=== PATIENT | male | born 1965 | race Caucasian/White ===

== ENCOUNTER → 2021-01-07 | Outpatient (CLI) | payer MEDICARE ==
--- NOTE | 2021-01-07 13:10 | XR ---
EXAMINATION TYPE: XR chest 2V DATE OF EXAM: 01/07/2021 COMPARISON: Chest x-ray 02/22/2015 HISTORY: Shortness of breath TECHNIQUE: Frontal and lateral views of the chest are obtained. FINDINGS: There is no focal air space opacity, pleural effusion, or pneumothorax seen. The cardiac silhouette size is within normal limits. Calcified granuloma suspected in the right upper lobe. The osseous structures are intact. IMPRESSION: No acute cardiopulmonary process. Probable granuloma right upper lobe.
== END | disposition home or self-care (01) ==
LOC: RADXRMAIN 11:03
PROVIDERS: ATTEND Internal Medicine
DX: R06.02 Shortness of breath (principal)
CPT/HCPCS: 71046

== ENCOUNTER 2021-01-12 20:13 | Emergency (ER) | payer MEDICARE ==
--- NOTE | 2021-01-12 20:22 | ED ---
General Adult HPI - General Stated complaint: Neuro Time Seen by Provider: 01/12/21 20:14 Source: patient, RN notes reviewed, old records reviewed - History of Present Illness Initial comments: 55-year-old male history of atrial fibrillation not on current anticoagulant. He has presented with left-sided weakness which began abruptly at 1908. Patient was initially dizzy, this progressed to complete left-sided weakness. He is a transported as a priority one by EMS. His brother had given him nitroglycerin as he does have a history of CAD. Patient has complete paralysis of the left side of his body with left-sided neglect. He does complain of a headache, no other pain complaints. - Related Data Home Medications Medication Instructions Recorded Confirmed Clopidogrel [Plavix] 75 mg PO DAILY 02/22/15 02/22/15 Diazepam [Valium] 10 mg PO BID PRN 02/22/15 02/22/15 Diltiazem Cd [Cardizem Cd] 120 mg PO DAILY 02/22/15 02/22/15 HYDROcodone/APAP 10-325MG [[place] 1 each PO Q6H PRN 02/22/15 02/22/15 10] Metoprolol Tartrate [Lopressor] 50 mg PO BID 02/22/15 02/22/15 Nitroglycerin Sl Tabs [Nitrostat] 0.4 mg SUBLINGUAL Q5M PRN 02/22/15 02/22/15 Omeprazole [PriLOSEC] 20 mg PO AC-BRKFST 02/22/15 02/22/15 Pravastatin Sodium [Pravachol] 40 mg PO DAILY 02/22/15 02/22/15 Allergies Allergy/AdvReac Type Severity Reaction Status Date / Time No Known Allergies Allergy Verified 01/12/21 20:33 Review of Systems ROS Statement: Those systems with pertinent positive or pertinent negative responses have been documented in the HPI. ROS Other: All systems not noted in ROS Statement are negative. Past Medical History Past Medical History: Hyperlipidemia, Hypertension, Myocardial Infarction ([place]) History of Any Multi-Drug Resistant Organisms: None Reported Past Surgical History: Cholecystectomy, Heart Catheterization With Stent Past Psychological History: No Psychological Hx Reported Past Alcohol Use History: None Reported Past Drug Use History: None Reported General Exam General appearance: alert, in no apparent distress Head exam: Present: atraumatic, normocephalic Eye exam: Present: normal appearance, PERRL Neck exam: Present: normal inspection. Absent: tenderness, meningismus Respiratory exam: Present: normal lung sounds bilaterally. Absent: respiratory distress, wheezes Cardiovascular Exam: Present: regular rate, normal rhythm GI/Abdominal exam: Present: soft. Absent: distended, tenderness, guarding Extremities exam: Present: normal capillary refill, other Neurological exam: Present: alert, motor sensory deficit (NIH of 18, complete left-sided hemiplegia, left-sided neglect, dysarthria.). Absent: CN II-XII intact Skin exam: Present: warm, dry, intact. Absent: cyanosis, diaphoretic Course Vital Signs 01/12/21 20:29 Temperature 98.1 F Pulse Rate 70 Respiratory 18 Rate Blood Pressure 151/87 O2 Sat by Pulse 96 Oximetry - Reevaluation(s) Reevaluation #1: 01/12/212027 This discussed with Dr. Brownlee regarding patient's presentation, it was decided that TPA would be administered. This has been ordered and pharmacy has been contacted. EKG Findings - EKG Comments: EKG Findings:: EKG: Sinus rhythm with ventricular rate of 70, AK interval 202, Q RS duration 96, QTC 475. Medical Decision Making - Medical Decision Making 55-year-old male presenting with CVA, left-sided paralysis, high NIH of 18. CT performed without contrast which is negative for intracranial hemorrhage or mass effect. Patient is a TPA candidate and this medication has been started. His onset was approximately 5. CT angiography has been performed and has been reviewed by stroke neurologist who is requesting transfer to [facility]. I discussed case with the stroke intervention was Dr. Brownlee, the neuro ICU team, and ER physician. All parties except patient and the patient will be transferred by EMS. CBC and PT-INR have been performed these are within normal limits, additional laboratory testing has been ordered results pending. Diagnosis: Ischemic CVA status post TPA. - Lab Data Result diagrams: 01/12/21 20:35 01/12/21 20:35 Lab Results 01/12/21 01/12/21 01/12/21 Range/Units 20:35 20:35 20:35 WBC 7.3 (3.8-10.6) k/uL RBC 4.39 (4.30-5.90) m/uL Hgb 14.0 (13.0-17.5) gm/dL Hct 41.2 (39.0-53.0) % MCV 93.7 (80.0-100.0) fL MCH 31.8 (25.0-35.0) pg MCHC 33.9 (31.0-37.0) g/dL RDW 13.1 (11.5-15.5) % Plt Count 216 (150-450) k/uL MPV 6.6 Neutrophils % 67 % Lymphocytes % 24 % Monocytes % 5 % Eosinophils % 3 % Basophils % 1 % Neutrophils # 4.9 (1.3-7.7) k/uL Lymphocytes # 1.7 (1.0-4.8) k/uL Monocytes # 0.4 (0-1.0) k/uL Eosinophils # 0.2 (0-0.7) k/uL Basophils # 0.0 (0-0.2) k/uL PT 10.4 (9.0-12.0) sec INR 1.0 (<1.2) APTT 22.9 (22.0-30.0) sec Sodium 137 (137-145) mmol/L Potassium 4.1 (3.5-5.1) mmol/L Chloride 103 (98-107) mmol/L Carbon Dioxide 28 (22-30) mmol/L Anion Gap 6 mmol/L BUN 18 (9-20) mg/dL Creatinine 0.71 (0.66-1.25) mg/dL Est GFR (CKD-EPI)AfAm >90 (>60 ml/min/1.73 sqM) Est GFR (CKD-EPI)NonAf >90 (>60 ml/min/1.73 sqM) Glucose 108 H (74-99) mg/dL Calcium 8.7 (8.4-10.2) mg/dL Total Bilirubin 0.8 (0.2-1.3) mg/dL AST 24 (17-59) U/L ALT 27 (4-49) U/L Alkaline Phosphatase 91 (38-126) U/L Troponin I (0.000-0.034) ng/mL Total Protein 6.5 (6.3-8.2) g/dL Albumin 3.9 (3.5-5.0) g/dL 01/12/21 Range/Units 20:35 WBC (3.8-10.6) k/uL RBC (4.30-5.90) m/uL Hgb (13.0-17.5) gm/dL Hct (39.0-53.0) % MCV (80.0-100.0) fL MCH (25.0-35.0) pg MCHC (31.0-37.0) g/dL RDW (11.5-15.5) % Plt Count (150-450) k/uL MPV Neutrophils % % Lymphocytes % % Monocytes % % Eosinophils % % Basophils % % Neutrophils # (1.3-7.7) k/uL Lymphocytes # (1.0-4.8) k/uL Monocytes # (0-1.0) k/uL Eosinophils # (0-0.7) k/uL Basophils # (0-0.2) k/uL PT (9.0-12.0) sec INR (<1.2) APTT (22.0-30.0) sec Sodium (137-145) mmol/L Potassium (3.5-5.1) mmol/L Chloride (98-107) mmol/L Carbon Dioxide (22-30) mmol/L Anion Gap mmol/L BUN (9-20) mg/dL Creatinine (0.66-1.25) mg/dL Est GFR (CKD-EPI)AfAm (>60 ml/min/1.73 sqM) Est GFR (CKD-EPI)NonAf (>60 ml/min/1.73 sqM) Glucose (74-99) mg/dL Calcium (8.4-10.2) mg/dL Total Bilirubin (0.2-1.3) mg/dL AST (17-59) U/L ALT (4-49) U/L Alkaline Phosphatase (38-126) U/L Troponin I <0.012 (0.000-0.034) ng/mL Total Protein (6.3-8.2) g/dL Albumin (3.5-5.0) g/dL Critical Care Time Critical Care Time: Yes Total Critical Care Time: 35 Disposition Clinical Impression: Cerebrovascular accident (CVA) Disposition: OTHER INSTITUTION NOT DEFINED Condition: Serious Is patient prescribed a controlled substance at d/c from ED?: No Referrals: Gail Morales MD [Primary Care Provider] - 1-2 days Time of Disposition: 20:56 - Out of Hospital Transfer - Req. Specs Out of Hospital Transfer - Requested Specifics: Neurological ICU (Transferred to [facility])
[2021-01-12] MEDS ORDERED: ALTEPLASE BOLUS 9 MG in EMPTY SYRINGE 1 SYR IV STA (20:31)
[2021-01-12] MEDS ORDERED: ALTEPLASE 81 MG in EMPTY BAG 1 BAG IV STA (20:32)
--- NOTE | 2021-01-12 20:33 | CT ---
EXAMINATION TYPE: CT brain wo con for TPA DATE OF EXAM: 01/12/2021 COMPARISON: None HISTORY: cva CT DLP: 1173.6 mGycm Automated exposure control for dose reduction was used. Ventricles have normal size. There is no mass effect nor midline shift. There is no sign of intracran ial hemorrhage. Calvarium is intact. Skull base is intact. There is normal aeration of the mastoid si nuses. IMPRESSION: Normal unenhanced head CT scan. Left maxillary sinusitis noted.
[2021-01-12 20:42] LABS: Basophils % (A) 1 %; Eosinophils # (A) 0.2 k/uL (0-0.7); Eosinophils % (A) 3 %; HCT 41.2 % (39.0-53.0); Lymphocytes # (A) 1.7 k/uL (1.0-4.8); Lymphocytes % (A) 24 %; MCH 31.8 pg (25.0-35.0); MCHC 33.9 g/dL (31.0-37.0); MCV 93.7 fL (80.0-100.0); Mean Platelet Volume 6.6; Monocytes # (A) 0.4 k/uL (0-1.0); Monocytes % (A) 5 %; Neutrophils # (A) 4.9 k/uL (1.3-7.7); Neutrophils % (A) 67 %; Platelet Count 216 k/uL (150-450); RBC 4.39 m/uL (4.30-5.90); RDW 13.1 % (11.5-15.5); WBC 7.3 k/uL (3.8-10.6)
--- NOTE | 2021-01-12 20:45 | CT ---
EXAMINATION TYPE: CT angio head neck DATE OF EXAM: 01/12/2021 COMPARISON: None HISTORY: cva CT DLP: 1003.8 mGycm Automated exposure control for dose reduction was used. CONTRAST: Performed with IV Contrast, patient injected with 65cc mL of Isovue 370. There are 3-D post processed images. Images obtained from the aortic arch to the vertex of the brain with IV contrast. FINDINGS: There is normal branching pattern of the great vessels on the aortic arch. There is bilateral arteria l flow in the subclavian arteries. There is arterial flow in the common internal and external carotid arteries bilaterally. There is bilateral plaque formation at the carotid artery bifurcations. There is approximate 75% short segment stenosis at the origin of the right internal carotid artery. There i s approximate 30% stenosis origin of the left internal carotid artery. There is arterial flow in both vertebral arteries. There is arterial flow in the vertebrobasilar artery system. There is arterial flow in the anterior middle and posterior cerebral arteries. There is no mass effec t. There is no evidence of intracranial aneurysm or neovascularity. I see no evidence of intracranial arterial stenosis. There is normal enhancement of the venous sinuses. IMPRESSION: Bilateral plaque formation at the carotid artery bifurcations with approximate 75% stenosis origin ri ght internal carotid artery and 30% stenosis left internal carotid artery.
[2021-01-12] MEDS ORDERED: SODIUM CHLORIDE 0.9% 1,000 ML IV STA (20:50)
[2021-01-12 20:51] LABS: Partial Thromboplastin Time 22.9 sec (22.0-30.0); Prothrombin Time 10.4 sec (9.0-12.0)
[2021-01-12 21:01] LABS: ALT 27 U/L (4-49); AST 24 U/L (17-59); African American GFR (CKD) >90 (>60 ml/min/1.73 sqM); Albumin 3.9 g/dL (3.5-5.0); Alkaline Phosphatase 91 U/L (38-126); Anion Gap 6 mmol/L; Blood Urea Nitrogen 18 mg/dL (9-20); Calcium 8.7 mg/dL (8.4-10.2); Carbon Dioxide 28 mmol/L (22-30); Chloride 103 mmol/L (98-107); Glucose 108 mg/dL (74-99); Non-African American GFR(CKD) >90 (>60 ml/min/1.73 sqM); Potassium 4.1 mmol/L (3.5-5.1); Sodium 137 mmol/L (137-145); Total Bilirubin 0.8 mg/dL (0.2-1.3); Total Protein 6.5 g/dL (6.3-8.2)
[2021-01-12 21:57] VITALS: BP 144/85; PULSE 67; RESP 19; TEMP 98
== END 2021-01-12 21:21 | disposition other institution (70) ==
LOC: EC 20:13
DX: I63.9 Cerebral infarction, unspecified (principal); I25.2 Old myocardial infarction; I25.10 Atherosclerotic heart disease of native coronary artery without angina pectoris; I10 Essential (primary) hypertension; E78.5 Hyperlipidemia, unspecified; I48.91 Unspecified atrial fibrillation; Z79.02 Long term (current) use of antithrombotics/antiplatelets
CPT/HCPCS: 36415; 93005; 80053; 84484; 85025; 85610; 85730; 70496; 70450; 70498; 99291; 37195; J2997; Q9967

== ENCOUNTER → 2021-06-09 | Outpatient (CLI) | payer MEDICARE ==
--- NOTE | 2021-06-09 20:36 | CT ---
EXAMINATION TYPE: CT chest wo con DATE OF EXAM: 06/09/2021 COMPARISON: Chest radiograph dated 01/07/2021 HISTORY: Abnormal cxr. TECHNIQUE: CT scan of the chest performed without intravenous contrast in the supine and prone position. CT DLP: 264 mGycm Automated exposure control for dose reduction was used. FINDINGS: Respiratory motion and study technique limits evaluation for small nodules. There is a 6.6 mm calcified nodule in the right lower lobe corresponding to the focal opacities seen on the chest x-ray dated 01/07/2021. Multiple nonspecific tiny cluster of nodules seen in the left upper lobe peripherally series 8 image 27 could be on the basis of atelectasis, scarring. Infection or inflammation cannot be entirely ruled out as these nodularities have a somewhat [id number]-like appearance. Minimal linear opacities are demonstrated in the left upper lobe anteriorly seen on series 4 image 15 and series 8 image 19 and could be on the basis of atelectasis or scarring. No focal airspace disease, pneumothorax or pleural effusion. The trachea and bronchial tree are gross ly patent. There is no evidence of air trapping. Evaluation of the mediastinum and tico is suboptimal due to lack of IV contrast. No grossly enlarged lymph nodes are seen. Subcentimeter calcified nodules are seen in the left hilum and left mediastinum prevascular space. The heart is normal in size and there is no pericardial effusion. Coronary arterial calcifications ar e seen. The thyroid gland is not enlarged. The esophagus is not dilated. Evaluation of the osseous structures is suboptimal due to lack of coronal and sagittal reconstruction s. There is a somewhat sclerotic lesion measuring 9 mm and upper thoracic spine vertebral body probab ly T6. Multilevel degenerative changes are seen in the spine suboptimal characterization. Cholecystectomy clips seen in the upper abdomen. IMPRESSION: 1. CALCIFIED RIGHT LOWER LOBE NODULE AND CALCIFIED LEFT HILAR AND MEDIASTINAL LYMPH NODES, FINDINGS S UGGEST GRANULOMATOUS DISEASE LIKELY REMOTE. CORRELATION WITH HISTORY AND PHYSICAL EXAMINATION RECOMME NDED. 2. NONSPECIFIC NODULAR AND LINEAR-LIKE OPACITIES IN THE LEFT UPPER LOBE COULD BE RELATED TO ATELECTAS IS, SCARRING, INFECTION OR INFLAMMATION CANNOT BE ENTIRELY RULED OUT. DEVELOPING MALIGNANCY CANNOT BE ENTIRELY RULED OUT. 3. SOMEWHAT SCLEROTIC LESION MEASURING 9 MM PROBABLY WITHIN T6 VERTEBRAL BODY SUBOPTIMAL IN EVALUATIO N DUE TO STUDY TECHNIQUE. FURTHER EVALUATION RECOMMENDED. RECOMMENDATION: RECOMMEND REPEATING DEDICATED CT OF THE CHEST WITH CONTRAST WITHIN A SHORT 3-6 MONTHS INTERVAL.
== END | disposition home or self-care (01) ==
LOC: RADCTMAIN 16:57
PROVIDERS: ATTEND Internal Medicine
DX: R91.8 Other nonspecific abnormal finding of lung field (principal)
CPT/HCPCS: 71250

== ENCOUNTER 2021-12-12 05:54 | Day surgery (SDC) | payer MEDICARE ==
[2021-12-09 09:06] VITALS: BMI 44.7
[2021-12-12] MEDS ORDERED: SODIUM CHLORIDE 0.9% 1,000 ML IV SCH (06:02)
[2021-12-12] MEDS ORDERED: LACTATED RINGERS 1,000 ML IV SCH (06:02)
[2021-12-12] MEDS ORDERED: SODIUM CHLORIDE 0.9% 500 ML 500 ML IV ONE (06:15)
[2021-12-12 06:49] LABS: INR 2.6 (<1.2); Prothrombin Time 26.3 sec (9.0-12.0)
[2021-12-12 06:56] LABS: African American GFR (CKD) >90 (>60 ml/min/1.73 sqM); Anion Gap 8 mmol/L; Blood Urea Nitrogen 16 mg/dL (9-20); Calcium 9.4 mg/dL (8.4-10.2); Carbon Dioxide 26 mmol/L (22-30); Chloride 103 mmol/L (98-107); Glucose 106 mg/dL (74-99); Non-African American GFR(CKD) >90 (>60 ml/min/1.73 sqM); Potassium 4.4 mmol/L (3.5-5.1); Sodium 137 mmol/L (137-145)
[2021-12-12] MEDS ORDERED: LIDOCAINE 1% INJ 10MG/ML (20 ML MDV) ONE (07:20)
[2021-12-12] MEDS ORDERED: MIDAZOLAM 2 MG/2 ML VIAL ONE (07:20)
[2021-12-12] MEDS ORDERED: PROPOFOL 10 MG/ML 20 ML VIAL IV ONE (07:20)
[2021-12-12] MEDS ORDERED: KETAMINE 10 MG/ML 20 ML VIAL ONE (07:20)
[2021-12-12] MEDS ORDERED: BENZOCAINE SPRAY 1 CAN TOPICAL ONE (07:29)
[2021-12-12 07:50] VITALS: TEMP 97
[2021-12-12 07:53] VITALS: RESP 16
[2021-12-12 09:31] VITALS: BP 111/62; PULSE 73
--- NOTE | 2021-12-12 21:24 | P.TEE ---
Description of Procedure(s): Procedure performed: Transesophageal Echocardiogram with color flow doppler, pulsed wave doppler and continuous wave doppler, Synchronized cardioversion Moderate conscious sedation: Moderate conscious sedation was supplied by anesthesia, see separate report Complications: none Indications: Symptomatic atrial fibrillation PROCEDURE: After the risks, benefits and alternatives of the above mentioned procedure was explained in detail with the patient, informed consent was obtained. Patient was brought to the lab in a fasting state. Patient was given sedation by anesthesia, see separate report. The throat was sprayed with Hurricane to anesthetize the throat. A lubricated Omni probe was then introduced into the esophagus and stomach and multiple views were obtained. 2D echo with color flow doppler, pulsed wave doppler and continuous wave doppler was utilized. Agitated saline bubbles were injected to assess for any intra- atrial shunt. The probe was then removed. There was no SULEIMAN thrombus and therefore synchronized cardioversion was performed with 120J with sinus rhythm. Patient tolerated the procedure well. Patient was transferred to the post procedure area in stable and satisfactory condition. FINDINGS: 1. The aortic valve is tricuspid and normally functioning. There is no aortic stenosis. There is no significant aortic regurgitation. 2. The mitral valve appears be normal with mild mitral regurgitation. 3. Tricuspid valve which is normal without significant tricuspid reg urgitation. 4. The interatrial septum is intact. No evidence of PFO. 5. Left atrial appendage has no thrombus 6. Left ventricular size appears normal. Left ventricular function is severely decreased with EF 30-35% with global hypokinesis.
== END 2021-12-12 09:46 | disposition home health service (06) ==
LOC: CATHCVL 05:54
PROVIDERS: ATTEND Internal Medicine
DX: I48.91 Unspecified atrial fibrillation (principal); Z20.822 Contact with and (suspected) exposure to COVID-19
CPT/HCPCS: 93312; 93320; 93325; 92960; 80048; 85610; 87635; J2250; J2001; J2704

== ENCOUNTER → 2022-04-20 | Outpatient (CLI) | payer MEDICARE ==
[2022-04-20 18:37] LABS: HCT 43.1 % (39.6-50.0); HGB 13.7 g/dL (13.0-17.0); MCH 30.4 pg (27.0-32.0); MCHC 31.8 g/dL (32.0-37.0); MCV 95.8 fL (80.0-97.0); Mean Platelet Volume 9.2 fL (9.5-12.2); NRBC Per 100 WBC 0 /100 WBCS (0.0-0.0); Platelet Count 190 X 10*3/uL (140-440); RDW 13.2 % (11.5-14.5); WBC 6.55 X 10*3/uL (4.50-10.00)
[2022-04-20 18:48] LABS: African American GFR (CKD) 115.9 (60.0-200.0); Anion Gap 10.6 mmol/L (10.00-18.00); Carbon Dioxide 25.7 mmol/L (20.0-27.5); Potassium 4.3 mmol/L (3.5-5.5)
== END | disposition home or self-care (01) ==
LOC: LABPAT 10:35
PROVIDERS: ATTEND Internal Medicine Clinical Cardiac Electrophysiology
DX: Z01.812 Encounter for preprocedural laboratory examination (principal); I48.19 Other persistent atrial fibrillation
CPT/HCPCS: 80051; 82565; 84520; 85027

== ENCOUNTER → 2022-04-27 | Day surgery (SDC) | payer MEDICARE ==
[2022-04-25 11:55] VITALS: BMI 40.0
[~2022-04-27] MED LIST: SODIUM CHLORIDE 0.9% 1,000 ML IV ONE; SODIUM CHLORIDE 0.9% 1,000 ML IV SCH
[2022-04-27 13:30] VITALS: BP 106/56; PULSE 130; RESP 18; TEMP 99.8
[2022-04-27 14:03] LABS: INR 2.4 (<1.2); Prothrombin Time 23.6 sec (9.0-12.0)
--- NOTE | 2022-04-27 15:09 | P.PCN ---
Preoperative Diagnosis: Patient came in for an A. fib ablation He had low-grade fever Scratchy throat His Covid test is positive Procedure canceled and will be rescheduled at a later date
== END ==
LOC: CATHEP 12:21
PROVIDERS: ATTEND Internal Medicine Clinical Cardiac Electrophysiology
DX: I48.91 Unspecified atrial fibrillation (principal); Z86.73 Personal history of transient ischemic attack (TIA), and cerebral infarction without residual deficits; Z79.01 Long term (current) use of anticoagulants; I25.10 Atherosclerotic heart disease of native coronary artery without angina pectoris; I42.9 Cardiomyopathy, unspecified; I35.1 Nonrheumatic aortic (valve) insufficiency; U07.1 COVID-19; Z53.8 Procedure and treatment not carried out for other reasons
CPT/HCPCS: 85610; 87635

== ENCOUNTER → 2022-07-04 | Outpatient (CLI) | payer MEDICARE ==
--- NOTE | 2022-07-04 11:24 | CT ---
EXAMINATION TYPE: CT chest w con DATE OF EXAM: 07/04/2022 COMPARISON: 06/09/2021 HISTORY: Previous abnormal lung findings CT DLP: 715 mGycm, Automated exposure control for dose reduction was used. CONTRAST: Performed injected with 70 ml mL of Isovue 300. TECHNIQUE: Axial images were obtained at 5 mm thick sections. Reconstructed images are reviewed on [employer] computer in the coronal plane. FINDINGS: Portion of the thyroid visualized is normal. No suspicious lung nodules or focal infiltrates are present. There is a calcified granuloma in the po sterior right lung measuring 0.7 cm. No enlarged mediastinal or hilar adenopathy is evident. The ascending aorta diameter at the level o f the main pulmonary artery is 3.6 cm. The main pulmonary artery diameter at the bifurcation is 2.8 cm. Coronary artery calcification is present. Limited CT sections are obtained through the upper abdomen. Abdomen is essentially unremarkable. Gall bladder is surgically absent. Faint sclerotic areas within the midthoracic spine vertebral bodies are again evident. IMPRESSIONS: 1. No acute pulmonary process. Stable calcified granuloma posterior right lung
== END | disposition home or self-care (01) ==
LOC: RADCTMAIN 08:39
PROVIDERS: ATTEND Internal Medicine
DX: J84.10 Pulmonary fibrosis, unspecified (principal)
CPT/HCPCS: 71260; Q9967

== ENCOUNTER → 2022-07-11 | Outpatient (CLI) | payer MEDICARE ==
[2022-07-11 18:42] LABS: ALT 59 U/L (10-49); AST 44 U/L (14-35); Chol/HDL Ratio 3.84 Ratio; LDL Cholesterol,Calculated 122.4 mg/dL (0.0-131.0)
== END | disposition home or self-care (01) ==
LOC: LABWHC1 11:31
PROVIDERS: ATTEND Internal Medicine
DX: E78.2 Mixed hyperlipidemia (principal)
CPT/HCPCS: 36415; 80061; 84450; 84460

== ENCOUNTER → 2023-03-01 | Outpatient (CLI) | payer MEDICARE ==
--- NOTE | 2023-03-01 11:12 | XR ---
EXAMINATION TYPE: XR lumbosacral spine min 4V DATE OF EXAM: 03/01/2023 11:02 AM INDICATION: Patient age:Male; 57 years old; Reason for study: R52; COMPARISON: 02/05/2015 TECHNIQUE: Frontal, lateral and coned in L5-S1 lateral views of the spine. FINDINGS: No evidence of any acute osseous pathology. There is wedging of the T11-T12 vertebral hiro s. The remainder of the vertebral body height is maintained. There is normal alignment of the lumbar vertebral bodies. Mild scattered disc space narrowing worse at L4-L5. Multilevel marginal osteophyte formation throughout the visualized spine. There is facet joint arthropathy throughout the spine. Sca ttered at least mild neural foraminal stenosis. Atherosclerosis of the arterial vasculature. Right upper quadrant cholecystectomy clips. IMPRESSION: 1. No acute fracture. 2. Progression of multilevel disc degeneration changes. 3. Mild wedging of the T11 and T12 vertebral bodies.
== END | disposition home or self-care (01) ==
LOC: RADXRMAIN 10:19
PROVIDERS: ATTEND Physical Medicine & Rehabilitation
DX: M48.54XA Collapsed vertebra, not elsewhere classified, thoracic region, initial encounter for fracture (principal); M51.36 Other intervertebral disc degeneration, lumbar region
CPT/HCPCS: 72110

== ENCOUNTER → 2023-03-12 | Outpatient (CLI) | payer MEDICARE ==
[2023-03-12 16:03] LABS: Chol/HDL Ratio 2.88 Ratio; LDL Cholesterol,Calculated 78.6 mg/dL (0.0-131.0)
[2023-03-12 16:05] LABS: ALT 31 U/L (10-49); AST 40 U/L (14-35)
== END | disposition home or self-care (01) ==
LOC: LABWHC1 10:00
PROVIDERS: ATTEND Internal Medicine Clinical Cardiac Electrophysiology
DX: E78.2 Mixed hyperlipidemia (principal)
CPT/HCPCS: 36415; 80061; 84450; 84460